=== PATIENT | female | born 1955 | race Caucasian/White ===

== ENCOUNTER 2021-02-16 15:29 | Emergency (ER) | payer OTHER, SELFPAY ==
--- NOTE | ~2021-02-16 | XR_ITS ---
EXAMINATION: LEFT WRIST AND LEFT ELBOW X-RAYS CLINICAL INFORMATION: Pain post fall COMPARISON: None TECHNIQUE: 4 views of the left wrist and 3 views of the left elbow FINDINGS: Left wrist: No fracture or dislocation is seen. There is arthritis at the first SENIOR CARE joint with joint space narrowing and osteophyte formation. There may be mild subluxation at the first SENIOR CARE joint is well, probably post degenerative. Joint spaces are otherwise normal. Soft tissues are normal. Left elbow: There is a displaced fracture of the radial head. No other fracture is seen. Joint spaces are normal. There is an elbow joint effusion. There is a small osteophyte at the triceps tendon insertion to the olecranon. XR/XR elbow LT min 3V IMPRESSION: Left wrist: Arthritis at the first SENIOR CARE joint. Left elbow: Displaced radial head fracture. Joint effusion.
--- NOTE | ~2021-02-16 | XR_ITS ---
EXAMINATION: LEFT WRIST AND LEFT ELBOW X-RAYS CLINICAL INFORMATION: Pain post fall COMPARISON: None TECHNIQUE: 4 views of the left wrist and 3 views of the left elbow FINDINGS: Left wrist: No fracture or dislocation is seen. There is arthritis at the first HALFWAY joint with joint space narrowing and osteophyte formation. There may be mild subluxation at the first HALFWAY joint is well, probably post degenerative. Joint spaces are otherwise normal. Soft tissues are normal. Left elbow: There is a displaced fracture of the radial head. No other fracture is seen. Joint spaces are normal. There is an elbow joint effusion. There is a small osteophyte at the triceps tendon insertion to the olecranon. XR/XR wrist LT min 3V IMPRESSION: Left wrist: Arthritis at the first HALFWAY joint. Left elbow: Displaced radial head fracture. Joint effusion.
--- NOTE | ~2021-02-16 | CT_ITS ---
EXAMINATION: CT HEAD WITHOUT CONTRAST CLINICAL INFORMATION: Fall. Trauma. COMPARISON: None TECHNIQUE: Contiguous axial imaging was performed from the skull base to vertex without intravenous administration of contrast. This CT examination was performed using dose optimization techniques as appropriate, variously including the following: *Automated exposure control *Adjustment of mA and/or kV according to patient size (this includes techniques or standardized protocols for targeted exams where dose is matched to indication/reason for exam; i.e. extremities or head) *Use of iterative reconstruction technique DLP: 678 mGy-cm FINDINGS: There is no evidence of acute intracranial hemorrhage or territorial infarction. No abnormal mass effect or midline shift is seen. Frias to white matter differentiation is well preserved. No extra-axial fluid collections are identified. The ventricles are normal in size. There is no abnormal attenuation within the brain parenchyma. The osseous structures and soft tissues are normal. The mastoid air cells are well aerated. There is moderate ethmoid sinus and mild maxillary sinus mucosal thickening. CT/CT head/brain wo con IMPRESSION: No acute intracranial pathology. Nonspecific moderate ethmoid sinus mucosal thickening.
[2021-02-16 15:42] VITALS: BP 125/76; BP 154/72; PULSE 100; PULSE 97; RESP 16; TEMP 36.6; O2SAT 97; O2SAT 98; BMI 33.3
--- NOTE | 2021-02-16 15:48 | ED_ITS ---
HPI - General Adult General Chief complaint: Extremity Injury, Upper <Francis Sorensen - Last Filed: 02/16/21 17:20> Stated complaint: FALL ELBOW ARM PAIN <Francis Sorensen - Last Filed: 02/16/21 17:20> Time Seen by Provider: 02/16/21 15:47 <Francis Sorensen - Last Filed: 02/16/21 17:20> Source: patient <Francis Sorensen - Last Filed: 02/16/21 17:20> Limitations: no limitations <Francis Sorensen - Last Filed: 02/16/21 17:20> History of Present Illness HPI narrative: Patient presents to the ER via EMS after falling at work. 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 Question LOC no nausea vomiting at this time 10/10 pain in the left elbow. Pain increases with any range of motion of the left elbow. Patient denies chest pain shortness of breath fever chills. Patient states she bruises easily has a history of alcohol abuse but has been sober for 1 year. Patient had a recent procedure on her left upper arm by dermatology where they did a biopsy. Injury occurred at work. <Francis Sorensen - Last Filed: 02/16/21 17:20> Related Data Home medications: Home Medications Medication Instructions Recorded Confirmed acamprosate 333 mg tablet,delayed 666 mg PO TID 03/07/21 release cephalexin 500 mg capsule 500 mg PO BID 03/07/21 ketoconazole 2 % topical cream appl TOPICAL DAILY 03/07/21 lorazepam 0.5 mg tablet 0.5 mg PO DAILY PRN 03/07/21 mupirocin 2 % topical ointment 1 appl TOPICAL TID 03/07/21 naltrexone 50 mg tablet 50 mg PO DAILY 03/07/21 sertraline 100 mg tablet 100 mg PO DAILY 03/07/21 Previous Rx's Medication Instructions Recorded oxycodone-acetaminophen [Endocet] 1 tab PO Q4H PRN #20 tab 02/16/21 tramadol 50 mg tablet 50 mg PO Q8H 7 Days #21 tab 02/19/21 <Francis Sorensen - Last Filed: 02/16/21 17:20> Allergies/adverse reactions: Allergies Allergy/AdvReac Type Severity Reaction Status Date / Time SEASONAL ALLERGIES Allergy Unknown SHORTNESS Uncoded 03/07/21 13:28 OF BREATH <Francis Sorensen - Last Filed: 02/16/21 17:20> Review of Systems Constitutional: Constitutional: Denies chills, Denies fever(s) and Reports headache(s) <Francis Sorensen - Last Filed: 02/16/21 17:20> Eyes: Eyes: Denies blurry vision, Denies change in vision, Denies diplopia and Denies loss of vision <Francis Sorensen - Last Filed: 02/16/21 17:20> ENT: Reports headache(s) and Denies sore throat <Francis Sorensen - Last Filed: 02/16/21 17:20> Cardiovascular: Cardiovascular: Denies chest pain, Reports Loss of Consciousness and Denies dyspnea <Francis Sorensen Last Filed: 02/16/21 17:20> Respiratory: Respiratory: Denies cough and Denies dyspnea <Francis Sorensen - Last Filed: 02/16/21 17:20> Gastrointestinal: Gastrointestinal: Denies nausea and Denies vomiting <Francis Sorensen - Last Filed: 02/16/21 17:20> Musculoskeletal: Musculoskeletal: Reports arthralgias and Reports joint swelling <Francis Sorensen - Last Filed: 02/16/21 17:20> Comments: Left elbow pain <Francis Sorensen - Last Filed: 02/16/21 17:20> Integumentary/Breasts: Skin/Breast: Denies rash <Francis Sorensen Last Filed: 02/16/21 17:20> Neurologic: Reports headache(s), Denies focal weakness and Denies loss of vision <Francis Sorensen - Last Filed: 02/16/21 17:20> Hematologic/Lymphatic: Hematologic/Lymphatic: Reports easy bruising <Francis Sorensen - Last Filed: 02/16/21 17:20> Allergic/Immunologic: Allergic/Immunologic: Denies urticaria <Francis Sorensen - Last Filed: 02/16/21 17:20> PMFSH Past Medical History Attestation statement: The following information was validated with the patient. <Francis Sorensen - Last Filed: 02/16/21 17:20> Medical History: Medical History Asthma Diabetes <Francis Sorensen - Last Filed: 02/16/21 17:20> Social History Social History: Social History (Updated 03/07/21 @ 13:29 by LETI Graham) Alcohol intake: never Patient Tobacco Use Status: Never used Tobacco Current occupational status: employed Current occupation: right handed, works at school <Francis Sorensen - Last Filed: 02/16/21 17:20> Physical Exam Vital Signs: Vital Signs: Last Vital Signs Temp 97.8 F 02/16/21 15:42 Pulse 97 02/16/21 15:42 Resp 16 02/16/21 15:42 BP 125/76 02/16/21 15:42 Pulse Ox 98 02/16/21 15:42 Body Mass Index 33.3 vital signs have been reviewed as normal and appeared to be correct. Blood pressure normal. Heart rate normal. Respiration rate normal. Temperature normal. Oxygen saturation normal. <Francis Sorensen - Last Filed: 02/16/21 17:20> Vital Signs: Last Vital Signs Temp 97.8 F 02/16/21 15:42 Pulse 97 02/16/21 15:42 Resp 16 02/16/21 15:42 BP 125/76 02/16/21 15:42 Pulse Ox 98 02/16/21 15:42 Body Mass Index 33.3 <Cecilio Anderson MD - Last Filed: 03/12/21 07:01> Appearance: Alert. Oriented X3. No acute distress. Head: Normal external exam. Normocephalic. No Ly signs noted. No raccoon eyes noted Eyes: PERRLA. EOMI. Conjunctiva and sclera normal. Eyelids normal. ENT: Pharynx normal. Uvula midline. Moist mucous membranes. Neck: Soft full range of motion CVS: Heart regular rate and rhythm no murmurs and rubs Respiratory: Breath sounds are clear to auscultation bilaterally. No accessory muscle use noted. Abdomen: Soft nontender no rebound or guarding positive bowel sounds Back: No CVA tenderness. Full range of motion noted. Skin: Skin warm and dry. Normal skin color. Normal skin turgor. No rashes/lesions/lacerations noted. Extremities: Diffuse tenderness left elbow decreased range of motion secondary to pain distal pulses intact Neuro: Oriented X 3. No motor deficit. No sensory deficit. Reflexes normal. <Francis Sorensen - Last Filed: 02/16/21 17:20> Course Course Course Narrative: Differential diagnosis: Left elbow fracture Left elbow dislocation Left elbow contusion Closed head injury Concussion 3:50 p.m. patient owns of fentanyl IV via EMS which has helped with pain control at this time x-ray of left elbow plan CT of the head 4:30 p.m. Patient has displaced radial head fracture on the left will consult Orthopedics 4:49 p.m. Orthopedics Giovana MEI recommends sling and follow up Friday a.m. 10 mg oxycodone p.o. patient will be placed in sling plan for discharge CT of the head is negative patient understands follow-up with orthopedics on Friday <Francis Sorensen - Last Filed: 02/16/21 17:20> I have discussed the case and management with the UYEN <Cecilio Anderson MD - Last Filed: 03/12/21 07:01> Medical Decision Making Imaging Data wrist: Radiologist's impression: [address] [id number] ReportSigned Patient: Mallorie HendrixMR#: [id number]: 1955cct:[id number] ge/Sex: 65 / FADM Date: 02/16/21Loc: MEENU.EDAttending Dr: Ordering Physician: Francis Sorensen Date of Service: 02/16/21 Procedure(s): XR wrist LT min 3V Accession Number(s): [id number] cc: Francis Sorensen ~ EXAMINATION: LEFT WRIST AND LEFT ELBOW X-RAYS CLINICAL INFORMATION: Pain post fall COMPARISON: None TECHNIQUE: 4 views of the left wrist and 3 views of the left elbow FINDINGS: Left wrist: No fracture or dislocation is seen. There is arthritis at the first PRISON joint with joint space narrowing and osteophyte formation. There may be mild subluxation at the first PRISON joint is well, probably post degenerative. Joint spaces are otherwise normal. Soft tissues are normal. Left elbow: There is a displaced fracture of the radial head. No other fracture is seen. Joint spaces are normal. There is an elbow joint effusion. There is a small osteophyte at the triceps tendon insertion to the olecranon. XR/XR wrist LT min 3V IMPRESSION: Left wrist: Arthritis at the first PRISON joint. Left elbow: Displaced radial head fracture. Joint effusion. Dictated By:VIKA PRYOR MDSigned By:<Electronically signed by VIKA PRYOR MD in OV>02/16/211621 DD/ 1603TD/TT: Learning Technologist: PATTIE <Francis Sorensen - Last Filed: 02/16/21 17:20> elbow: Radiologist's impression: [address] [id number] ReportSigned Patient: Mallorie HendrixMR#: [id number]: 1955cct:[id number]/Sex: 65 / FADM Date: 02/16/21Loc: HO.EDAttending Dr: Ordering Physician: Francis Sorensen Date of Service: 02/16/21 Procedure(s): XR elbow LT min 3V Accession Number(s): [id number] cc: Francis Sorensen ~ EXAMINATION: LEFT WRIST AND LEFT ELBOW X-RAYS CLINICAL INFORMATION: Pain post fall COMPARISON: None TECHNIQUE: 4 views of the left wrist and 3 views of the left elbow FINDINGS: Left wrist: No fracture or dislocation is seen. There is arthritis at the first PRISON joint with joint space narrowing and osteophyte formation. There may be mild subluxation at the first PRISON joint is well, probably post degenerative. Joint spaces are otherwise normal. Soft tissues are normal. Left elbow: There is a displaced fracture of the radial head. No other fracture is seen. Joint spaces are normal. There is an elbow joint effusion. There is a small osteophyte at the triceps tendon insertion to the olecranon. XR/XR elbow LT min 3V IMPRESSION: Left wrist: Arthritis at the first PRISON joint. Left elbow: Displaced radial head fracture. Joint effusion. Dictated By:VIKA PRYOR MDSigned By:<Electronically signed by VIKA PRYOR MD in OV>02/16/211621 DD/ 1547TD/TT: Learning Technologist: PATTIE <Francis Sorensen - Last Filed: 02/16/21 17:20> CT scan - head: Radiologist's impression: [facility] [place], [place] [id number] Scan ReportSigned Patient: Mallorie HendrixMR#: [id number]: 1955cct:[id number]/Sex: 65 / FADM Date: 02/16/21Loc: HO.EDAttending Dr: Ordering Physician: Francis Sorensen Date of Service: 02/16/21 Procedure(s): CT head/brain wo con Accession Number(s): [id number] cc: Francis Sorensen ~ EXAMINATION: CT HEAD WITHOUT CONTRAST CLINICAL INFORMATION: Fall. Trauma. COMPARISON: None TECHNIQUE: Contiguous axial imaging was performed from the skull base to vertex without intravenous administration of contrast. This CT examination was performed using dose optimization techniques as appropriate, variously including the following: *Automated exposure control *Adjustment of mA and/or kV according to patient size (this includes techniques or standardized protocols for targeted exams where dose is matched to indication/reason for exam; i.e. extremities or head) *Use of iterative reconstruction technique DLP: 678 mGy-cm FINDINGS: There is no evidence of acute intracranial hemorrhage or territorial infarction. No abnormal mass effect or midline shift is seen. Frias to white matter differentiation is well preserved. No extra-axial fluid collections are identified. The ventricles are normal in size. There is no abnormal attenuation within the brain parenchyma. The osseous structures and soft tissues are normal. The mastoid air cells are well aerated. There is moderate ethmoid sinus and mild maxillary sinus mucosal thickening. CT/CT head/brain wo con IMPRESSION: No acute intracranial pathology. Nonspecific moderate ethmoid sinus mucosal thickening. <Francis Sorensen - Last Filed: 02/16/21 17:20> Discharge Plan Discharge Clinical Impression: Fracture <Francis Sorensen - Last Filed: 02/16/21 17:20> Patient Disposition: Home, Self-Care <Francis Sorensen - Last Filed: 02/16/21 17:20> Instructions: Elbow Fracture (ED) <Francis Sorensen - Last Filed: 02/16/21 17:20> Additional Instructions: Follow-up with orthopedics on Friday Wear sling Medication as directed Return if symptoms worsen CT scan of the head is negative <Francis Sorensen - Last Filed: 02/16/21 17:20> Prescriptions: New oxycodone-acetaminophen [Endocet] 5-325 mg tablet 1 tab PO Q4H PRN (Reason: pain (scale score 7-10)) Qty: 20 RF: 0 No Action cephalexin 500 mg capsule 500 mg PO BID RF: 0 naltrexone 50 mg tablet 50 mg PO DAILY RF: 0 sertraline 100 mg tablet 100 mg PO DAILY RF: 0 mupirocin 2 % ointment 1 appl topical TID RF: 0 acamprosate 333 mg tablet,delayed release (DR/EC) 666 mg PO TID RF: 0 ketoconazole 2 % cream topical DAILY RF: 0 lorazepam 0.5 mg tablet 0.5 mg PO DAILY PRN (Reason: anxiety) RF: 0 tramadol 50 mg tablet 50 mg PO Q8H 7 Days Qty: 21 RF: 0 <Francis Sorensen - Last Filed: 02/16/21 17:20> Referrals: Karon Hamilton MD [Physician] - 2 days <Francis Sorensen - Last Filed: 02/16/21 17:20> Interventions: ED Discharge Assessment Last Done: 02/16/21 18:01 <Francis Ross Last Filed: 02/16/21 17:20> Discharge Date/Time: 02/16/21 17:30 <Francis Sorensen - Last Filed: 02/16/21 17:20>
[2021-02-16] MEDS: oxyCODONE HCl Immed Release 5 MG TABLET 10 MG PO (17:23)
== END 2021-02-16 17:30 | disposition home or self-care (01) ==
PROVIDERS: Emergency Provider Emergency Medicine; PCP Nurse Practitioner Family
DX: S52.122A Displaced fracture of head of left radius, initial encounter for closed fracture (principal); M25.532 Pain in left wrist; G44.309 Post-traumatic headache, unspecified, not intractable; X58.XXXA Exposure to other specified factors, initial encounter; Y93.9 Activity, unspecified; Y92.9 Unspecified place or not applicable; Y99.0 Civilian activity done for income or pay; Z79.899 Other long term (current) drug therapy
CPT/HCPCS: 70450; 73080; 73110; 99284

== ENCOUNTER → 2021-02-19 09:10 | Outpatient (BNVA) | payer OTHER, SELFPAY | PROVIDERS: PCP Nurse Practitioner Family; Visit Provider Physician Assistant | DX: S52.122A Displaced fracture of head of left radius, initial encounter for closed fracture (principal) | CPT/HCPCS: 99202 ==

== ENCOUNTER 2021-03-07 08:02 | Outpatient (REF) | payer OTHER, SELFPAY ==
--- NOTE | ~2021-03-07 | XR_ITS ---
EXAMINATION: XR ELBOW, LEFT CLINICAL INFORMATION: Radial head fracture, follow-up. COMPARISON: 02/16/2021 left elbow radiographs. TECHNIQUE: AP, lateral, and oblique views of the left elbow. FINDINGS: Again seen is a mildly displaced intra-articular radial head fracture without significant change. A small posterior olecranon spur is noted. There is a probable small residual joint effusion. The soft tissues are unremarkable. XR/XR elbow LT min 3V IMPRESSION: Persistent mildly displaced left radial head intra-articular fracture without significant interval change.
== END 2021-03-07 08:03 | disposition home or self-care (01) ==
LOC: HO.HOSX 08:02
PROVIDERS: Visit Provider Physician Assistant
DX: S52.122D Displaced fracture of head of left radius, subsequent encounter for closed fracture with routine healing (principal)
CPT/HCPCS: 73080; 99212

== ENCOUNTER 2021-04-04 07:44 | Outpatient (REF) | payer OTHER, SELFPAY ==
--- NOTE | ~2021-04-04 | XR_ITS ---
EXAMINATION: XR ELBOW, LEFT XR WRIST, LEFT CLINICAL INFORMATION: Pain. COMPARISON: Left elbow 03/07/2021. Left wrist 02/16/2021. TECHNIQUE: 3 views of the left elbow. 3 views of the left wrist. FINDINGS: LEFT ELBOW: Stable alignment of the impacted radial head fracture. The transverse fracture across the radial neck is more conspicuous due to the presence of sclerosis along the hairline fracture. Persistent joint effusion. LEFT WRIST: No acute osseous abnormality. Severe arthritis with slight subluxation of the 1st CMC joint. No significant change. XR/XR elbow LT min 3V IMPRESSION: Left elbow: Stable alignment without evidence of partial healing of the radial head and neck fractures. Left wrist: No acute abnormality. Stable degenerative findings.
--- NOTE | ~2021-04-04 | XR_ITS ---
EXAMINATION: XR ELBOW, LEFT XR WRIST, LEFT CLINICAL INFORMATION: Pain. COMPARISON: Left elbow 03/07/2021. Left wrist 02/16/2021. TECHNIQUE: 3 views of the left elbow. 3 views of the left wrist. FINDINGS: LEFT ELBOW: Stable alignment of the impacted radial head fracture. The transverse fracture across the radial neck is more conspicuous due to the presence of sclerosis along the hairline fracture. Persistent joint effusion. LEFT WRIST: No acute osseous abnormality. Severe arthritis with slight subluxation of the 1st CMC joint. No significant change. XR/XR wrist LT min 3V IMPRESSION: Left elbow: Stable alignment without evidence of partial healing of the radial head and neck fractures. Left wrist: No acute abnormality. Stable degenerative findings.
== END 2021-04-04 07:45 | disposition home or self-care (01) ==
LOC: HO.HOSX 07:44
PROVIDERS: Visit Provider Physician Assistant
DX: S52.122A Displaced fracture of head of left radius, initial encounter for closed fracture (principal); M25.522 Pain in left elbow; M25.532 Pain in left wrist
CPT/HCPCS: 73080; 73110; 99212

== ENCOUNTER 2021-04-23 16:38 | Outpatient (REF) | payer OTHER, SELFPAY ==
--- NOTE | ~2021-04-23 | MR_ITS ---
EXAMINATION: MRI WRIST WITH AND WITHOUT CONTRAST, LEFT CLINICAL INFORMATION: Pain while moving the wrist. Left wrist swelling. Work related injury 02/16/2021. COMPARISON: Left wrist radiograph dated April 04, 2021. TECHNIQUE: MRI of the left wrist was performed before and after the administration of IV contrast using a local coil. Multisequence, multiplanar images were obtained. FINDINGS: Bones: Signal heterogeneity in the volar and ulnar aspect of the scaphoid articular cartilage with underlying subchondral edema. Signal heterogeneity in the mid volar radial articular cartilage with underlying subchondral edema. There is prominent joint space loss at the thumb CMC joint with associated subchondral sclerosis in the trapezium and marginal osteophytosis at the thumb CMC joint. Associated thumb CMC joint synovitis demonstrated by diffuse postcontrast enhancement of the synovium. Cartilage thinning and subchondral edema in the ulnar aspect of the triquetrum. Degenerative subchondral mechanical erosion in the radial margin of the mid capitate. The bone marrow signal intensity is within normal limits. No fracture line or bone marrow edema. The carpal spaces and alignment are maintained. No inflammatory related erosive changes are appreciated. No periosteal edema. Tendons: The extensor and flexor tendons are intact. Ligaments: Intermediate signal is noted in the dorsal component of the scapholunate lunate ligament (8:15), (6:11). No appreciable normal-appearing dark signal dorsal component fibers are illustrated. Intermediate T2 signal intensity is noted in the membranous and volar components of the scapholunate ligament. The volar, interosseous, and dorsal component of the lunotriquetral ligament are intact. TFCC: The central articular disc of the triangular fibrocartilage complex is intact. The proximal and distal lamina are intact at the foveal and ulnar styloid attachments. Intermediate T2 signal in the peripheral undersurface of the TFCC. The meniscal homologue, ulnar collateral ligament and ECU tendon sheath are intact. The volar and dorsal radioulnar and volar ulnolunate and ulnotriquetral ligaments are intact. Carpal Tunnel: The median nerve has a normal caliber and signal. There is no crowding of the carpal tunnel. Guyon?s Canal: The ulnar nerve has a normal caliber and signal. Soft Tissues: The muscles are normal in morphology and signal intensity. No fluid collection. MR/MR wrist LT wo/w con IMPRESSION: Left wrist: 1. High-grade tearing of the scapholunate ligament involving the dorsal, interosseous, and volar components of the scapholunate ligament complex. No dorsal component fibers are definitively appreciated. Preserved carpal bone alignment and scapholunate interval. 2. Mild radiocarpal joint arthrosis. Mechanical erosion in the radial margin of the capitate and mild chondrosis of the ulnar aspect of the triquetrum. Diffuse synovial enhancement the radiocarpal joint compatible with synovitis. 3. Severe thumb CMC joint arthrosis. 4. Low-grade degenerative changes in the periphery of the TFCC. Intact TFCC central disc.
[2021-04-23 16:24] LABS: Blood Urea Nitrogen 26 mg/dL (9-16); Estimated Glomerular Filt Rate 55
== END 2021-04-23 16:39 | disposition home or self-care (01) ==
LOC: HO.MRI 16:38
PROVIDERS: Visit Provider Physician Assistant
DX: M25.432 Effusion, left wrist (principal)
CPT/HCPCS: 36415; 73223; 82565; 84520; A9585

== ENCOUNTER → 2021-04-25 13:06 | Outpatient (BNVA) | payer OTHER, SELFPAY | PROVIDERS: PCP Nurse Practitioner Family; Visit Provider Physician Assistant | DX: S63.8X2A Sprain of other part of left wrist and hand, initial encounter (principal); W18.30XA Fall on same level, unspecified, initial encounter; Y93.9 Activity, unspecified; Y92.219 Unspecified school as the place of occurrence of the external cause; Y99.0 Civilian activity done for income or pay | CPT/HCPCS: 99212 ==

== ENCOUNTER 2021-05-02 11:15 | Outpatient (REF) | payer OTHER, SELFPAY ==
--- NOTE | ~2021-05-02 | XR_ITS ---
EXAMINATION: XR WRIST, RIGHT CLINICAL INFORMATION: Pain right wrist COMPARISON: None TECHNIQUE: PA, lateral, and oblique views of the right wrist. FINDINGS: The bones and soft tissues are normal. No fracture. Alignment is anatomic with normal joint spaces. No erosions or abnormal soft tissue calcifications. XR/XR wrist RT 2V IMPRESSION: Normal right wrist.
== END 2021-05-02 11:16 | disposition home or self-care (01) ==
LOC: HO.HOSX 11:15
PROVIDERS: Visit Provider Physician Assistant
DX: S63.8X2A Sprain of other part of left wrist and hand, initial encounter (principal)
CPT/HCPCS: 73100; 99212

== ENCOUNTER → 2021-07-06 15:28 | Outpatient (BNVA) | payer OTHER, SELFPAY | PROVIDERS: Visit Provider Physician Assistant | DX: S63.8X2D Sprain of other part of left wrist and hand, subsequent encounter (principal) | CPT/HCPCS: 99212 ==

== ENCOUNTER 2023-03-18 07:01 | Day surgery (SDC) | payer MEDICARE, SELFPAY ==
--- NOTE | 2023-03-17 12:56 | HO.ANESPROP2 ---
Documented by User: Karen Smith NP 03/17/23 12:57 HPI - Anesthesia Eval Consult details Narrative: 67yo F for Colonoscopy PMFSH Active Problems Active Problems: All Active Problems (Updated 04/25/21 @ 22:09 by Giovana Guzman PA-C) Left scapholunate ligament tear (Acute) Swelling of left wrist (Acute) Left elbow pain (Acute) Fracture of radial head, left, closed (Acute) Past Medical History Medical History (Updated 03/17/23 @ 13:37 by Mayela Xie, PADMA) Anxiety and depression Arthritis Asthma Diabetes H/O ETOH abuse HTN (hypertension) Sciatica Surgical History Surgical History (Updated 03/17/23 @ 13:37 by Mayela Xie RN) H/O tubal ligation History of appendectomy S/P excision of lipoma Social History Social History Alcohol intake: never Patient Tobacco Use Status: Former Tobacco user Use of substances other than those prescribed or required for medical reasons: No Are you DNR?: No Advance Directives: No Advance Directives Information Provided: Yes Recently lost weight without trying: No How much weight loss: 14-23 pounds Nutrition Risks: No Nutritional Risk Current occupational status: employed Current occupation: right handed, works at school [employer] Allergies Allergy/AdvReac Type Severity Reaction Status Date / Time SEASONAL ALLERGIES Allergy Unknown SHORTNESS Uncoded 05/02/21 14:15 OF BREATH Home Medications Medication Instructions Recorded Confirmed Last Taken Type acamprosate 333 mg tablet,delayed 666 mg PO TID 03/07/21 Unknown History release cephalexin 500 mg capsule 500 mg PO BID 03/07/21 Unknown History ketoconazole 2 % topical cream appl topical DAILY 03/07/21 Unknown History lorazepam 0.5 mg tablet 0.5 mg PO DAILY PRN anxiety 03/07/21 Unknown History mupirocin 2 % topical ointment 1 appl topical TID 03/07/21 Unknown History naltrexone 50 mg tablet 50 mg PO DAILY 03/07/21 Unknown History sertraline 100 mg tablet 100 mg PO DAILY 03/07/21 Unknown History bupropion HCl 150 mg 24 hr tablet, 150 mg PO QAM 03/17/23 03/17/23 Unknown History extended release disulfiram 250 mg tablet 250 mg PO DAILY 03/17/23 03/17/23 Unknown History fluticasone propionate 110 2 puff inhalation BID 03/17/23 03/17/23 Unknown History mcg/actuation HFA aerosol inhaler (Flovent HFA) meloxicam 15 mg tablet 15 mg PO DAILY 03/17/23 03/17/23 Unknown History simvastatin 10 mg tablet 10 mg PO BEDTIME 03/17/23 03/17/23 Unknown History trazodone 50 mg tablet 50 - 100 mg PO BEDTIME 03/17/23 03/17/23 Unknown History Exam Exam Date and Time: March 17, 2023 125 Assessment and Plan Assessment Anesthesia Assessment: Chart Reviewed Documented by User: Julio Diaz MD 03/18/23 08:28 [facility] Past Medical History Medical History (Updated 03/17/23 @ 13:37 by Mayela Xie RN) Anxiety and depression Arthritis Asthma Diabetes H/O ETOH abuse HTN (hypertension) Sciatica Family History Family history of problems with anesthesia: No Surgical History Surgical History (Updated 03/17/23 @ 13:37 by Mayela Xie RN) H/O tubal ligation History of appendectomy S/P excision of lipoma History of Problems with Anesthesia: No Social History Social History Alcohol intake: never Patient Tobacco Use Status: Former Tobacco user Use of substances other than those prescribed or required for medical reasons: No Are you DNR?: No Advance Directives: No Advance Directives Information Provided: Yes Recently lost weight without trying: No How much weight loss: 14-23 pounds Nutrition Risks: No Nutritional Risk Current occupational status: employed Current occupation: right handed, works at school Meds Allergies Allergy/AdvReac Type Severity Reaction Status Date / Time SEASONAL ALLERGIES Allergy Unknown SHORTNESS Uncoded 05/02/21 14:15 OF BREATH Home Medications Medication Instructions Recorded Confirmed Last Taken Type acamprosate 333 mg tablet,delayed 666 mg PO TID 03/07/21 Unknown History release cephalexin 500 mg capsule 500 mg PO BID 03/07/21 Unknown History ketoconazole 2 % topical cream appl topical DAILY 03/07/21 Unknown History lorazepam 0.5 mg tablet 0.5 mg PO DAILY PRN anxiety 03/07/21 Unknown History mupirocin 2 % topical ointment 1 appl topical TID 03/07/21 Unknown History naltrexone 50 mg tablet 50 mg PO DAILY 03/07/21 Unknown History sertraline 100 mg tablet 100 mg PO DAILY 03/07/21 Unknown History bupropion HCl 150 mg 24 hr tablet, 150 mg PO QAM 03/17/23 03/17/23 Unknown History extended release disulfiram 250 mg tablet 250 mg PO DAILY 03/17/23 03/17/23 Unknown History fluticasone propionate 110 2 puff inhalation BID 03/17/23 03/17/23 Unknown History mcg/actuation HFA aerosol inhaler (Flovent HFA) meloxicam 15 mg tablet 15 mg PO DAILY 03/17/23 03/17/23 Unknown History simvastatin 10 mg tablet 10 mg PO BEDTIME 03/17/23 03/17/23 Unknown History trazodone 50 mg tablet 50 - 100 mg PO BEDTIME 03/17/23 03/17/23 Unknown History Exam Airway Mallampati Class: II TM Dist: <=3cm Neck ROM: Full Heart: ok Lungs: ok Assessment and Plan Assessment Anesthesia Assessment: Anesthesia Plan Discussed Final Anesthetic Review Family History of Problems with Anesthesia: No History of Problems with Anesthesia: No NPO: Yes ASA Class: III Final Preanesthetic Review: No Changes in Pt Med Stat, Meds/Allgs Chart Reviewed, Consent Obtained/Reviewed and Anes Risks/Benef Reviewed Patient Risk: Intermediate Procedure Risk: Low Anesthetic Plan Anesthetic Plan: MAC: and Agree w/ Assess. and Plan Disposition: Standard PACU
[2023-03-18 07:36] VITALS: BMI 29.9
[2023-03-18 07:43] VITALS: BP 108/62; PULSE 66; RESP 16; TEMP 36.3; O2SAT 94
[2023-03-18] MEDS: Lactated Ringers 1,000 ML 100 ML IVCONT (07:54)
--- NOTE | 2023-03-18 08:52 | P.HPSUR_ITS ---
Pre-Procedural Eval Section A Date of Service: 03/18/23 Section B Chief Complaint: screening,hx of polyps Details of Present Illness: see H&P no changes Relevant Family History (Specify if Yes): No Relevant Social History: None Present Medications: see Short Stay Collaborative assessment Medical History: No relevant PMH Allergies: Allergies Allergy/AdvReac Type Severity Reaction Status Date / Time SEASONAL ALLERGIES Allergy Unknown SHORTNESS Uncoded 05/02/21 14:15 OF BREATH Review of Systems Sugical H&P ROS: Negative: Constitution, Cardiovascular, Respiratory, Neurological, Psychiatric, Hem-Onc, Allergic/Immunologic, Gastrointestinal, Genitourinary, Musculoskeletal, Integumentary, Endocrine and Eyes/Ears/Nose/Throat Exam Surgical H&P Exam: Normal: HEENT, Normal: Heart, Normal: Lungs, Normal: Ext remities, Normal: Abdomen, Normal: Skin and Normal: Neurological Plan Diagnosis/Plan: Unchanged I have reviewed the history and physical and performed a pertinent physical examination on my patient. No changes have occurred unless specified. Time Spent With Patient Time: Total time managing care of this patient today ____ minutes.
[2023-03-18 08:55] VITALS: BP 88/46; PULSE 60; RESP 18; TEMP 36.9; O2SAT 92
[2023-03-18 09:10] VITALS: BP 110/56; PULSE 57; RESP 16; TEMP 36.3; O2SAT 95
--- NOTE | 2023-03-18 09:20 | OP_ITS ---
DATE OF SERVICE: 03/18/2023 SURGEON: Codey Murdock MD INDICATIONS: Colon cancer screening. PREOPERATIVE DIAGNOSIS: POSTOPERATIVE DIAGNOSIS: PROCEDURE PERFORMED: Colonoscopy to the terminal ileum with biopsy. ESTIMATED BLOOD LOSS: COMPLICATIONS: ANESTHESIA: Monitored anesthesia care. ASSISTANTS: SPECIMENS: DESCRIPTION OF PROCEDURE: A history and physical were performed. The risks and benefits of the procedure were explained to the patient. Informed consent was obtained. The patient was placed in the left lateral decubitus position. A digital rectal examination was performed and was found to be normal. The Olympus pediatric video colonoscope was introduced into the rectum and advanced to the cecum without difficulty. The cecum was identified by transillumination, palpation, and identification of ileocecal valve. Examination was performed. The scope was removed. She tolerated the procedure well and was returned to the recovery area in stable condition. FINDINGS: The terminal ileum was examined and appeared normal. The visualized colonic mucosa was normal. The quality of prep was good. There was a small polyp measuring less than 5 mm, which was identified and removed with biopsy forceps. The polyp was located in the right colon just above the ileocecal valve. No other polyps were identified. There was moderate sigmoid diverticulosis. Retroflexed examination was normal. IMPRESSION: Colon polyp. RECOMMENDATION: Follow up the biopsy results. MD SRIDHAR Mullins/RADHAL / [id number]
[2023-03-18 09:25] VITALS: BP 101/60; PULSE 56; RESP 18; TEMP 36.3; O2SAT 95
== END 2023-03-18 09:45 | disposition home or self-care (01) ==
PROVIDERS: PCP Nurse Practitioner Family; Visit Provider Internal Medicine Gastroenterology
PROC: 0DJD8ZZ Inspection of Lower Intestinal Tract, Via Natural or Artificial Opening Endoscopic (ICD-10-PCS; CPT 45378; principal; 2023-03-18 08:10)
DX: Z12.11 Encounter for screening for malignant neoplasm of colon (principal); Z86.010 Personal history of colon polyps; D12.2 Benign neoplasm of ascending colon; K57.30 Diverticulosis of large intestine without perforation or abscess without bleeding; F10.11 Alcohol abuse, in remission; E11.9 Type 2 diabetes mellitus without complications; I10 Essential (primary) hypertension; F41.8 Other specified anxiety disorders; J45.909 Unspecified asthma, uncomplicated; Z79.51 Long term (current) use of inhaled steroids; Z79.82 Long term (current) use of aspirin; Z79.899 Other long term (current) drug therapy; Z87.891 Personal history of nicotine dependence
CPT/HCPCS: 45380; 88305